=== PATIENT | female | born 1945 | race Caucasian/White ===

== ENCOUNTER 2017-06-25 05:51 | Day surgery (SDC) | payer OTHER, BC ==
[2017-06-25] MEDS ORDERED: GABAPENTIN 300 MG CAP PO ONE (06:14)
[2017-06-25] MEDS ORDERED: ACETAMINOPHEN 500 MG TAB PO ONE (06:14)
[2017-06-25] MEDS ORDERED: ceFAZolin 2 GM/SWFI 2 GM/20 ML SYR IVP ONE (06:14)
[2017-06-25] MEDS ORDERED: LR 1,000 ML IV ONE (06:15)
[2017-06-25] MEDS ORDERED: LIDOCAINE 1% 2 ML INJ ID PRN (06:15)
--- NOTE | 2017-06-25 06:35 | PDANEPAE ---
ANE History of Present Illness 72 yo F w L lumbar radiculopathy, here for decompression ANE Past Medical History - Cardiovascular History Hx Hypertension: Yes Hx Arrhythmias: No Hx Chest Pain: No Hx Coronary Artery / Peripheral Vascular Disease: No Hx CHF / Valvular Disease: No Hx Palpitations: No - Pulmonary History Hx COPD: No Hx Asthma/Reactive Airway Disease: No Hx Recent Upper Respiratory Infection: No Hx Oxygen in Use at Home: No Hx Sleep Apnea: No Sleep Apnea Screening Result - Last Documented: Negative - Neurologic History Hx Cerebrovascular Accident: No Hx Seizures: No Hx Dementia: No - Endocrine History Hx Diabetes: No Endocrine History Comment: hypothyroid - Renal History Hx Renal Disorders: No - Liver History Hx Hepatic Disorders: No - Neurological & Psychiatric Hx Hx Neurological and Psychiatric Disorders: Yes Neurological / Psychiatric History Comment: SI pain radiating down L hip pain, Stabbing pain L lateral thigh w/tingling down L leg - Cancer History Hx Cancer: Yes Cancer History Comment: melanoma Insitu R thigh removed - Congenital Disorder History Hx Congenital Disorders: No - GI History Hx Gastrointestinal Disorders: No Gastrointestinal History Comment: Hx GERD,ulcers-none past 2 yrs - Chronic Pain History Chronic Pain: Yes (L hip,L thigh) - Surgical History Prior Surgeries: T and A -child. appy -child. C section 1991. umbilical hernia repair 1992. lap isela 1997. R ACL replaced 2012 ANE Review of Systems Review of Systems: - Exercise capacity METS (RN): 4 METS ANE Patient History - Allergies Allergies/Adverse Reactions: Latex, Natural Rubber Allergy (Verified 06/25/17 06:21) meperidine [From Demerol] Allergy (Verified 06/25/17 06:21) Sulfa (Sulfonamide Antibiotics) Allergy (Verified 06/20/17 10:52) Anaphylaxis - Home Medications Home medications: home medication list seen and reviewed Home Medications: Citracal + D 06/20/17 [Last Taken 06/18/17] GINKGO BILOBA 06/20/17 [Last Taken 06/18/17] Krill Oil 06/20/17 [Last Taken 06/18/17] Ramipril 06/20/17 [Last Taken 06/18/17] Synthroid 06/20/17 [Last Taken 06/24/17] Triamterene 06/20/17 [Last Taken 06/18/17] Tylenol Arthritis 06/20/17 [Last Taken 06/24/17] - NPO status NPO Status: no food or drink >8 hours - Anes Hx Anes Hx: no prior problems - Smoking Hx Smoking Status: Never smoked - Alcohol Use Alcohol Use: Rarely - Family Anes Hx Family Anes Hx: none ANE Labs/Vital Signs - Vital Signs Vital Signs: reviewed preoperatively; see RN documention for details Height: 162.56 cm Weight: 72.121 kg ANE Physical Exam - Airway Neck exam: FROM Mallampati Score: Class 2 Mouth exam: normal dental/mouth exam - Pulmonary Pulmonary: no respiratory distress, clear to auscultation - Cardiovascular Cardiovascular: regular rate and rhythym, no murmur, rub, or gallop - ASA Status ASA Status: II ANE Anesthesia Plan Anesthesia Plan: general endotracheal anesthesia Total IV Anesthesia: Yes
[2017-06-25] MEDS ORDERED: MIDAZOLAM 2 MG/2 ML VIAL IVP ONE (06:36)
[2017-06-25] MEDS ORDERED: BUPIVACAINE 0.25% 30 ML SDV ONE (06:36)
[2017-06-25] MEDS ORDERED: CHLORHEXIDINE GLUC HIBICLENS 118 ML BTL TP ONE (06:36)
[2017-06-25] MEDS ORDERED: THROMBIN (BOVINE) 5,000 UNIT VIAL TP ONE (06:37)
[2017-06-25] MEDS ORDERED: DEPO METHYLPREDNISOLONE 40 MG/ML SDV ONE (06:37)
[2017-06-25] MEDS ORDERED: BACITRACIN 50,000 UNITS/10 ML SYR IRR ONE (06:37)
[2017-06-25] MEDS ORDERED: fentaNYL 100 MCG/2 ML INJ ONE ×4 (06:42→10:35)
[2017-06-25] MEDS ORDERED: PROPOFOL 200 MG/20 ML VIAL ONE (06:42)
[2017-06-25] MEDS ORDERED: REMIFENTANIL HCL 1 MG VIAL ONE (06:42)
[2017-06-25] MEDS ORDERED: PROPOFOL/EMULSION 500 MG/50 ML BOTTLE IV ONE (06:42)
[2017-06-25] MEDS ORDERED: SUCCINYLCHOLINE CHLORIDE 200 MG/10 ML SYR IVP ONE (06:49)
[2017-06-25] MEDS ORDERED: LIDOCAINE 2% 100 MG/5 ML SYR ONE (07:08)
[2017-06-25] MEDS ORDERED: ROCURONIUM 50 MG/5 ML VIAL ONE (07:08)
--- NOTE | 2017-06-25 07:18 | PDHPUP ---
History & Physical Update H&P update statement: This history and physical update is based on an assessment of the patient which was completed after admission or registration (within 24 hours), but prior to the surgery/procedure. H&P update: H&P reviewed & patient examined, no change in patient's condition since H&P completed
[2017-06-25] MEDS ORDERED: ONDANSETRON 4 MG/2 ML VIAL ONE (08:33)
[2017-06-25] MEDS ORDERED: DEXAMETHASONE 4 MG/ML VIAL ONE (08:33)
[2017-06-25] MEDS ORDERED: PHENYLEPHRINE HCL 100 MCG/ML SYR ONE (08:42)
[2017-06-25] MEDS ORDERED: OXYCODONE/APAP 5/325 TAB PO PRN (09:57)
[2017-06-25] MEDS ORDERED: NALOXONE HCL 0.4 MG/ML INJ IVP PRN (09:57)
[2017-06-25] MEDS ORDERED: HYDROmorphONE/DILAUDID 1 MG/ML INJ IVP PRN (09:57)
[2017-06-25] MEDS ORDERED: PROMETHAZINE HCL 25 MG/ML INJ IVP PRN (09:57)
[2017-06-25] MEDS ORDERED: HYDROCODONE/APAP 5/325 TAB PO PRN (09:57)
--- NOTE | 2017-06-25 09:57 | POSTANESTH ---
Post Anesthetic Evaluation Cardiovascular Status: Normal, Stable, Similar to Pre-Op Cond Respiratory Status: Normal, Stable, Similar to Pre-op Cond. Level of Consciousness/Mental Status: Can Participate in Eval, Alert and Oriented Pain Control: Adequate, Prn Tx Ordered Nausea/Vomiting Control: Adequate, Prn Tx Ordered Complications Possibly Related to Anesthesia: None Noted
--- NOTE | 2017-06-25 10:02 | POSTOPPROG ---
Post Op Note Date of Operation: 06/25/17 Surgeon: Cierra Arora Director Of Housing And [employer] Services: Kate Magana NP Anesthesia: GET(General Endotracheal) Pre-op Diagnosis: Lumbar stenosis Procedure: Left L3-4 LRD Inf/Abcess present in the surg proc area at time of surgery?: No Depth: Deep Incisional (Fascial) EBL: 50-100 Total fluids administered: see anesthesia Complications: none Date of Surgery: 06/25/17 Post Op Day: 0 Assessment/Plan: 72 yr old s/p left L3-4 LRD for left leg pain Plan: -Discharge home when criteria met -Please call neurosurgery with any questions/concerns Subjective: Patient waking up in PACU Objective: Waking up in PACU PERRL 5/5 BUE, BLE Sensation intact to light touch BLE Appropriate Neuro Check Frequency Ordered: Yes
[2017-06-25] MEDS: fentaNYL 100 MCG/2 ML INJ IVP PRN ×3 (10:25→11:06)
[2017-06-25] MEDS ORDERED: HYDROmorphONE/DILAUDID 1 MG/ML INJ ONE (10:34)
[2017-06-25] MEDS ORDERED: OXYCODONE/APAP 5/325 TAB ONE (10:57)
--- NOTE | 2017-06-25 11:01 | GOP ---
[f rep st] OPERATIVE REPORT DATE OF OPERATION: 06/25/2017 SURGEON: Brandon Arora MD NEUROSURGEON: Brandon Arora MD DOOR TO DOOR SELLING AGENT: Kate Magana NP PREOPERATIVE DIAGNOSIS: Herniated nucleus pulposus, L3-4, both in the spinal canal and left neural f oramen, left L4 radiculopathy. POSTOPERATIVE DIAGNOSIS: Herniated nucleus pulposus, L3-4, both in the spinal canal and left neural foramen, left L4 radiculopathy. PROCEDURE PERFORMED: Left L3-4 hemilaminotomy with a microdiskectomy (30021), microscope. FINDINGS: ESTIMATED BLOOD LOSS: 10 cc. 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 An MRI demonstrated a foraminal and intraspinal prolaps e of the L3-4 disc with compression, principally the L4 nerve root in the lateral recess. There was also some mass effect on the exiting L3 nerve root in the far lateral neural foramen. I explained th is to them. I explained the nature of spine surgery and our desire to do this through a single appro ach and I suggest an intraspinal approach, but I am also very familiar with the extraforaminal approa ch and, if this becomes necessary, we could offer this to her at a later date. I thought that the mo st likely result would be that she would respond nicely to a traditional left L3-4 microdiskectomy. They understood that I could not reliably know whether or not I delivered enough disc from the neural foramen to give her relief. The risk of spinal fluid leak, continued symptoms, back pain was discus sed. They understood these risks. They did want to proceed. DESCRIPTION OF PROCEDURE: The patient was taken to the operating room, placed in a supine position. General anesthesia was begun. She was flipped prone onto the Marshal frame. Care was taken to pad a ll points of contact. Her back was sterilely prepped and draped in the usual fashion. A localizing x-ray was taken. We made a midline 18 mm incision above the L3-4 interspace. The subcutaneous tissu e was dissected using Bovie cautery down through the fascia and a subperiosteal dissection was made d own the left L3-4 lamina. A self-retaining retractor was placed. A localizing x-ray was taken. We d rilled the left L3-4 hemilaminotomy. We opened ligamentum flavum and, under the scope, we decompress ed the lateral aspect of the thecal sac. We kept our exposure narrow preserving the IAP of L3 and no t disrupting the L3-4 facet joint. We decompressed to the mid L4 pedicle all the way up above the L3 -4 disk and then swept the thecal sac medially and underneath the L4 nerve in the lateral recess was a large prolapsed disc fragment. We took a black hook and simply opened the anulus of the disk and d elivered a nice fragment. We then opened the anulus somewhat more widely and squeezed additional mat erial in a subannular fashion out of the neural foramen. We did not radically remove the entire L3-4 disc, just the loose fragments that were present. We then irrigated the disk space with large amoun ts of antibiotic saline. The mass effect on the L4 nerve root has been completely alleviated. It wa s nice and free in the lateral recess. We irrigated with antibiotic saline solution, placed a little Depo-Medrol over the L4 nerve root and then closed the incision in multiple layers using Vicryl sutu res. Steri-Strips were applied to the skin. The patient was reversed from anesthesia, extubated, and transferred to the recovery room in stable condition. COMPLICATIONS: None. /[id number]/MODL
[2017-06-25 11:29] VITALS: TEMP 97
[2017-06-25 12:11] VITALS: BP 146/65; PULSE 75; RESP 14; O2SAT 93
== END 2017-06-25 12:05 | disposition home or self-care (01) ==
LOC: FSGY 05:51
PROVIDERS: ATTEND Neurological Surgery
DX: M51.16 Intervertebral disc disorders with radiculopathy, lumbar region (principal); I10 Essential (primary) hypertension; E03.9 Hypothyroidism, unspecified; Z85.820 Personal history of malignant melanoma of skin
CPT/HCPCS: J0171; J0330; J0690; J1030; J1100; J1170; J2001; J2370; J2405; J2704; J3010

== ENCOUNTER 2017-11-14 07:30 | Inpatient (IN) | payer OTHER, BC ==
[2017-11-14] MEDS ORDERED: GABAPENTIN 300 MG CAP PO ONE (11:01)
[2017-11-14] MEDS ORDERED: ceFAZolin 2 GM/DEXTROSE 100 ML IV ONE (11:01)
[2017-11-14] MEDS ORDERED: ACETAMINOPHEN 500 MG TAB PO ONE (11:01)
[2017-11-14] MEDS ORDERED: LR 1,000 ML IV ONE (11:01)
[2017-11-14] MEDS ORDERED: GABAPENTIN 300 MG CAP ONE (11:11)
[2017-11-14] MEDS ORDERED: CEFAZOLIN 2 GM/DEXTROSE/100 ML BAG IV ONE (11:11)
[2017-11-14] MEDS ORDERED: EPINEPHrine 1 MG/ML INJ ONE ×2 (11:12)
[2017-11-14] MEDS ORDERED: BUPIVACAINE 0.25% 30 ML SDV ONE (11:12)
[2017-11-14] MEDS ORDERED: ACETAMINOPHEN 500 MG TAB ONE (11:12)
[2017-11-14] MEDS ORDERED: THROMBIN (BOVINE) 5,000 UNIT VIAL TP ONE (11:14)
[2017-11-14] MEDS ORDERED: BACITRACIN 50,000 UNITS/10 ML SYR IRR ONE (11:14)
[2017-11-14] MEDS ORDERED: CHLORHEXIDINE GLUC HIBICLENS 118 ML BTL TP ONE (11:15)
[2017-11-14] MEDS ORDERED: THROMBIN (BOVINE) 20,000 UNIT VIAL TP ONE (11:18)
--- NOTE | 2017-11-14 12:00 | PDANEPAE ---
ANE Past Medical History - Cardiovascular History Hx Hypertension: Yes Hx Arrhythmias: No Hx Chest Pain: No Hx Coronary Artery / Peripheral Vascular Disease: No Hx CHF / Valvular Disease: No Hx Palpitations: No - Pulmonary History Hx COPD: No Hx Asthma/Reactive Airway Disease: No Hx Recent Upper Respiratory Infection: No Hx Oxygen in Use at Home: No Hx Sleep Apnea: No Sleep Apnea Screening Result - Last Documented: Negative - Neurologic History Hx Cerebrovascular Accident: No Hx Seizures: No Hx Dementia: No - Endocrine History Hx Diabetes: No Endocrine History Comment: hypothyroid - Renal History Hx Renal Disorders: No - Liver History Hx Hepatic Disorders: No - Neurological & Psychiatric Hx Hx Neurological and Psychiatric Disorders: Yes Neurological / Psychiatric History Comment: SI pain radiating down L hip pain, Stabbing pain L lateral thigh w/tingling down L leg - Cancer History Hx Cancer: Yes Cancer History Comment: melanoma Insitu R thigh removed - Congenital Disorder History Hx Congenital Disorders: No - GI History Hx Gastrointestinal Disorders: No Gastrointestinal History Comment: Hx GERD,ulcers-none past 2 yrs - Other Health History Other Health History: none - Chronic Pain History Chronic Pain: Yes (L hip,L thigh) - Surgical History Prior Surgeries: T and A -child. appy -child. C section 1991. umbilical hernia repair 1992. lap isela 1996. R ACL replaced 2012. lumbar decompression 07/05 ANE Review of Systems Review of Systems: - Exercise capacity METS (RN): 4 METS ANE Patient History - Allergies Allergies/Adverse Reactions: Latex, Natural Rubber Allergy (Verified 10/31/17 12:04) meperidine [From Demerol] Allergy (Verified 10/31/17 12:04) Sulfa (Sulfonamide Antibiotics) Allergy (Verified 10/31/17 12:04) Anaphylaxis - Home Medications Home Medications: Acetaminophen [Arthritis Pain Relief] 1,300 mg PO HS 10/25/17 [Last Taken ] Calcium Carb W/Vit D [Calcium Carb W/Vit D 500/200 (*)] 2 each PO DAILY [Last Taken 11/07/17] Herbals/Supplements -Info Only 1 ea PO DAILY 10/25/17 [Last Taken 11/07/17] Levothyroxine [Synthroid 100 mcg (*)] 100 mcg PO SUMOWEFRSA@2100 10/25/17 [Last Taken 11/13/17] Levothyroxine [Synthroid 88 mcg (*)] 88 mcg PO TUTH@2100 10/25/17 [Last Taken ] Multivitamins [Multivitamin (*)] 1 each PO DAILY 10/25/17 [Last Taken 11/07/17] [place] Tears Plus 1 drop EACHEYE BID 10/25/17 [Last Taken 11/14/17 08:00] Ramipril [Altace 5mg (*)] 5 mg PO DAILY 10/25/17 [Last Taken 11/14/17 06:30] Triamterene [Dyrenium 50MG (*)] 50 mg PO DAILY 10/25/17 [Last Taken 11/14/17 06: 30] - NPO status NPO Since - Liquids (Date): 11/13/17 NPO Since - Liquids (Time): 23:59 NPO Since - Solids (Date): 11/13/17 NPO Since - Solids (Time): 20:00 - Smoking Hx Smoking Status: Never smoked - Family Anes Hx Family Hx Anesthesia Complications: none ANE Labs/Vital Signs - Vital Signs Blood Pressure: 169/85 Heart Rate: 53 Respiratory Rate: 14 O2 Sat (%): 99 Height: 162.56 cm Weight: 71.214 kg ANE Physical Exam - Airway Neck exam: FROM Mallampati Score: Class 2 Mouth exam: normal dental/mouth exam - Pulmonary Pulmonary: no respiratory distress - Cardiovascular Cardiovascular: regular rate and rhythym - ASA Status ASA Status: II ANE Anesthesia Plan Anesthesia Plan: general endotracheal anesthesia
[2017-11-14] MEDS ORDERED: ROCURONIUM 50 MG/5 ML VIAL ONE (12:03)
[2017-11-14] MEDS ORDERED: MIDAZOLAM 2 MG/2 ML VIAL ONE (12:03)
[2017-11-14] MEDS ORDERED: PHENYLEPHRINE 10 MG/ML SDV ONE (12:03)
[2017-11-14] MEDS ORDERED: LIDOCAINE 2% 100 MG/5 ML SYR ONE (12:03)
[2017-11-14] MEDS ORDERED: PROPOFOL/EMULSION 500 MG/50 ML BOTTLE IV ONE ×4 (12:03→16:04)
[2017-11-14] MEDS ORDERED: METOCLOPRAMIDE 10 MG/2 ML VIAL ONE (12:03)
[2017-11-14] MEDS ORDERED: DEXAMETHASONE 4 MG/ML VIAL ONE ×2 (12:03)
[2017-11-14] MEDS ORDERED: POLYETHYLENE GLYCOL 3350 17 GM PKT PO PRN (17:22)
[2017-11-14] MEDS ORDERED: ONDANSETRON 4 MG/2 ML VIAL IVP PRN ×2 (17:22→17:24)
[2017-11-14] MEDS ORDERED: diphenhydrAMINE 25 MG CAP PO PRN (17:22)
[2017-11-14] MEDS ORDERED: LACTULOSE 20 GM/30 ML UDCUP PO PRN (17:22)
[2017-11-14] MEDS ORDERED: ONDANSETRON DISINTEGRATING 4 MG TAB PO PRN (17:22)
[2017-11-14] MEDS ORDERED: BISACODYL 10 MG SUPP PR PRN (17:22)
[2017-11-14] MEDS ORDERED: PROMETHAZINE HCL 25 MG/ML INJ IVP PRN (17:22)
[2017-11-14] MEDS ORDERED: MAGNESIUM HYDROXIDE 30 ML UDCUP PO PRN (17:22)
[2017-11-14] MEDS ORDERED: NALOXONE HCL 0.4 MG/ML INJ IVP PRN (17:24)
[2017-11-14] MEDS ORDERED: ALBUTEROL 3 ML DEYVIAL IH PRN (17:24)
--- NOTE | 2017-11-14 17:25 | POSTANESTH ---
Post Anesthetic Evaluation Cardiovascular Status: Similar to Pre-Op Cond Respiratory Status: Similar to Pre-op Cond. Level of Consciousness/Mental Status: Mildly Sleepy, Arousable Pain Control: Adequate, Prn Tx Ordered Nausea/Vomiting Control: Adequate, Prn Tx Ordered Complications Possibly Related to Anesthesia: None Noted
--- NOTE | 2017-11-14 17:29 | POSTOPPROG ---
Post Op Note Date of Operation: 11/14/17 Surgeon: Cierra Arora Cloth Grader: Lorrie Schneider PA-C Anesthesia: GET(General Endotracheal) Pre-op Diagnosis: Lumbar stenosis with radiculopathy Post-op Diagnosis: same Procedure: L3/4, L4/5 TLIF Findings: See dictated operative report Inf/Abcess present in the surg proc area at time of surgery?: No Depth: Organ Space EBL: 250 Drains: Kun Sterling (To full suction)
--- NOTE | 2017-11-14 17:33 | NEUSURGPN ---
Assessment/Plan: S: Patient in PACU. Stable and still waking up from surgery O: NAD, VSS No droop CN II-XII grossly intact PERRL, EOMI Following commands RAMOS X4 BLE 5/5= Sensation intact to lt touch Incision c/d/i LINDA X 1- to full suction A: 72 yo female sp L3/4, L4/5 TLIF P: -Admit to med/surg -Advance diet as tolerated -LINDA X 1 -Postop x-rays in am -DVT: TEDS, SCDs, Lovenox POD #3 -PT/OT -Brace to be delivered in am - Physician Discussed Patient with : Ulysses Patient Seen by : Ulysses Neurosurgery Physical Exam - Vitals, I&O, Labs I and O 11/13/17 11/14/17 11/15/17 05:59 05:59 05:59 Weight 71.214 kg Vital Signs Temp Pulse Resp BP Pulse Ox 36.5 C 53 L 14 169/85 H 99 11/14/17 11:07 11/14/17 11:59 11/14/17 11:59 11/14/17 11:59 11/14/17 11:59 ICD10 Worksheet Patient Problems: Problems Problem Status Onset Lumbar stenosis Acute - ICD10 Problem Qualifiers (1) Lumbar stenosis
[2017-11-14] MEDS ORDERED: fentaNYL 100 MCG/2 ML INJ ONE (17:43)
[2017-11-14] MEDS: fentaNYL 100 MCG/2 ML INJ IVP PRN ×2 (17:45→18:00)
--- NOTE | 2017-11-14 18:07 | GOP ---
[f rep st] OPERATIVE REPORT DATE OF OPERATION: 11/14/2017 SURGEON: Brandon Arora MD SEO CONSULTANT: Lorrie Schneider PA-C. PREOPERATIVE DIAGNOSIS: Large foraminal disk prolapse left L3-4, recurrent left L3-4 inferior disk e xtrusion adjacent to the L4 pedicle, severe spinal stenosis L4-5, severe left foraminal stenosis L3-4 and L4-5, mild degenerative scoliosis. POSTOPERATIVE DIAGNOSIS: Large foraminal disk prolapse left L3-4, recurrent left L3-4 inferior disk extrusion adjacent to the L4 pedicle, severe spinal stenosis L4-5, severe left foraminal stenosis L3- 4 and L4-5, mild degenerative scoliosis. PROCEDURE PERFORMED: Posterolateral and intervertebral arthrodesis with left-sided decompression at L3-4 (88612), bilateral decompression and posterolateral intervertebral arthrodesis at L4-5 (93361), posterior segmental instrumentation L3, L4, L5 (41187), same incision bone graft harvest, microscope, placement of biomechanical intervertebral device L3-4, L4-5 (64531 x2), same incision bone graft heladio vest. FINDINGS: ESTIMATED BLOOD LOSS: 300 cc. INDICATIONS: The patient underwent a transiently successful left L3-4 microdiskectomy due to a sandy inal extruded disk fragment a few months ago and had good initial relief, but the pain all returned a nd subsequent imaging demonstrated broad prolapse of the L3-4 anulus and disk into the L3-4 foramen w ith foraminal compression of the exiting L3 root. There was also recurrent extrusion down adjacent t o the L4 pedicle, compressing the L4 root. She had bilateral stenosis and foraminal stenosis at L4-5 and a degenerative scoliotic curve, and rather than reexploring, as much of her problem was both in the canal at 3-4, as well as in the foramen itself at the exiting 3 root, I suggested a 2 level fusio n, allowing us to deal with the degenerative scoliotic curve, radically remove the joint, decompress the exiting roots, and this would give us great freedom to thoroughly decompress the left-hand side. I was not optimistic that a reexploration of the same level would be useful. She understood this an d wanted to proceed. She knew there was risk of continued symptoms, nerve injury, spinal fluid leak. She knew there was a chance surgery may fail to alleviate her pain. She knew that she may develop adjacent segment disease and need for future surgery and she knew there was a chance she may not heal from the surgery. She wanted to proceed despite the risks. DESCRIPTION OF PROCEDURE: Patient was taken to the operating room, placed in supine position. Gener al anesthesia was begun. She was then flipped prone on the Kun table. Care was taken to pad all points of contact. Her back was sterilely prepped and draped in usual fashion. A localizing x-ray was taken. Made a midline incision from the spinous process of L2 down the spinous process of L5. I t was about 7.5 cm in length. The subcutaneous tissue was dissected using Bovie cautery down through the fascia and a subperiosteal dissection was made down the inferior lamina of L2. The lamina of L3 -4 and rostral lamina of L5 was exposed. We denuded the bilateral L3-4 and L4-5 facet joints and dec orticated the transverse processes. We attached the Stealth reference frame, performed an O-arm spin using frameless stealth stereotaxy. We placed pedicle screws bilaterally at L3, L4, and L5. All th e screws stimulated at acceptable levels. Her bone quality was acceptable and about as expected, giv en her age. We placed a 60 mm marcio on the right and a 65 mm marcio on left, distracted it on the left mo re so than the right, and reduced her scoliotic curve perfectly. Got some elevation of the disk spac e. The prior laminotomy on the left at L3-4 was visualized. We removed all soft tissue and bone at 3-4, 4-5, harvested the L4 and inferior L3 spinous process. We preserved the L5 spinous process. We drilled the bilateral laminectomy at L4-5 and harvested this bone for autologous grafting purposes. We drilled a left L3-4 facetectomy and harvested this bone for autologous grafting purposes. We com pletely decompressed bilaterally at L4-5 and removed the left L4-5 facet, decompressing the exiting L 4 nerve root at that level and the traversing L5 root. We decompressed the right traversing L5 nerve root at L4-5 and worked our way up to the scar at the L3-4 laminotomy site. We did remove the L3-4 facet and found ligamentum flavum rostral to our prior laminectomy site and localized the dura there, worked our way into the neural foramen. The exiting L3 nerve was identified and completely decompre ssed, and she had complete failure with the lateral anulus of the L3-4 disk and prolapse of the anulu s on the neural foramen. There was compression of the exiting L3 root. We then worked our way from this opening and dural visualization at L3-4 down and also worked our way up from the L4-5 decompress ion, removing the left hemirostral lamina of L4 and decompressing adjacent to the L4 pedicle. The L4 nerve root was totally decompressed adjacent to its pedicle. We did not go after the inferior disk extrusion at this time. We began by incising the L3-4 disk, sweeping the L4 nerve root medially, rem oving the disk and the cartilaginous endplates at L3-4, preparing for arthrodesis at that level. We decompressed the exiting L3 root. We then did likewise at the L4-5 level, sweeping the L4 nerve root medially and then removing the L4-5 disk and its cartilaginous endplates completely. We then packed bone autograft BMP and inserted into the L3-4 and L4-5 disk space expandable cages. They were 8 x 2 8 mm devices. They had been packed with BMP. We used a grand total of 1 mg of BMP in each disk spac e for total of 2 in the intervertebral spaces for this case. We used 2 mg posterolaterally in total for a total BMP usage of 4 mg. We then swept the L4 nerve root medially and there was scarred in mat erial adjacent to 4 root as it went over the L3-4 disk and was adjacent to the L4 pedicle, and we ope arnold this lateral scar and swept some remnants of acute free disk fragments out from underneath the 4 root and got a great decompression. This was the inferior extrusion that was seen on her MRI. The e ntire area was completely decompressed. We irrigated with antibiotic saline solution, placed a subfa scial drain, made sure that all our cap screws were torqued to company specification, placed bone aut ograft and BMP down posterolaterally to conclude our arthrodesis on each side. We placed a subfascia l drain, then closed the incision in multiple layers using Vicryl sutures. A running PDS was not use d in the skin. We simply closed the skin itself with interrupted Vicryl sutures and then Steri-Strip ped it. A dressing was applied. The patient was reversed from anesthesia, extubated, and transferre d to recovery room in stable condition. COMPLICATIONS: None. INSTRUMENTATION USED: Solera 5.5 mm system with 65 mm marcio on the left and a 60 mm titanium marcio on th e right. We used 8 x 28 mm Elevate cages. We used 4 mg of BMP and bone autograft. /[id number]/MODL
[2017-11-14] MEDS: oxyCODONE IR 5 MG TAB PO PRN (19:12)
[2017-11-14] MEDS ORDERED: LEVOTHYROXINE 100 MCG TAB PO SCH (21:00)
[2017-11-14] MEDS: SENNOSIDES/DOCUSATE SODIUM TAB PO SCH (21:20)
[2017-11-14] MEDS: ceFAZolin 2 GM/DEXTROSE 100 ML IV SCH (21:20)
[2017-11-14] MEDS: ACETAMINOPHEN 1300 MG PO SCH (21:21)
[2017-11-14] MEDS: ACETAMINOPHEN 500 MG TAB PO SCH (21:21)
[2017-11-15] MEDS: oxyCODONE IR 5 MG TAB PO PRN ×5 (01:49→22:01)
[2017-11-15] MEDS: METHOCARBAMOL 750 MG TAB PO PRN ×4 (01:53→20:09)
[2017-11-15] MEDS: ACETAMINOPHEN 500 MG TAB PO SCH ×3 (05:43→22:01)
[2017-11-15] MEDS: ceFAZolin 2 GM/DEXTROSE 100 ML IV SCH (05:44)
--- NOTE | 2017-11-15 08:11 | NEUSURGPN ---
Assessment/Plan: S: Doing well, has expected back pain but was up to the bathroom already today. Leg pain is improved. Some nausea with pain medicines but better after food. O: NAD, VSS No droop CN II-XII grossly intact PERRL, EOMI Following commands RAMOS X4 BLE 5/5= Sensation intact to lt touch Incision c/d/i LINDA X 1- to full suction A: 72 yo female sp L3/4, L4/5 TLIF P: -Overall doing well -Pain well managed- some nausea with pain medicines, give food and zofran prior to pain medicine -LINDA X 1- remove today -Postop x-rays today -Brace when up and OOB -DVT: TEDS, SCDs, Lovenox POD #3 -PT/OT -Discussed with Dr. Arora -Dispo- Work with PT/OT today, [facility] Catheter Insertion Date: 11/14/17 - Physician Discussed Patient with : Ulysses Neurosurgery Physical Exam - Vitals, I&O, Labs I and O 11/14/17 11/15/17 11/16/17 05:59 05:59 05:59 Intake Total 2860 Output Total 1360 880 Balance 1500 -880 Weight 71.214 kg Intake: Oral (ml) 1050 IV Intake (ml) 1600 IV Infused (ml) 210 ceFAZolin 2 GM/DEXTROSE 210 100 ml @ 200 mls/hr IV Q8HRS [facility] Rx#:[id number] Output: Urine (ml) 820 800 Catheter 820 800 Estimated Blood Loss (ml) 300 LINDA Drain Output (ml) 240 80 #1 Back 240 80 Vital Signs Temp Pulse Resp BP Pulse Ox 36.5 C 57 L 16 122/60 H 100 11/15/17 04:00 11/15/17 04:00 11/15/17 04:00 11/15/17 04:00 11/15/17 04:00 ICD10 Worksheet Patient Problems: Problems Problem Status Onset Lumbar stenosis Acute - ICD10 Problem Qualifiers (1) Lumbar stenosis
[2017-11-15] MEDS: SENNOSIDES/DOCUSATE SODIUM TAB PO SCH ×2 (08:22→20:09)
--- NOTE | 2017-11-15 13:22 | PDMN ---
Medical Necessity Medical necessity: IP surgery per [facility] cpt 94832, 29975 L3/4, 4/5 TLIF
[2017-11-15] MEDS: RAMIPRIL 5 MG CAP PO SCH (14:05)
[2017-11-15] MEDS: TRIAMTERENE 50 MG CAP PO SCH (14:06)
--- NOTE | 2017-11-15 14:07 | ASMTCMCOM ---
CM Note CM Note Notes: Pt s/p L3/4, L4/5 TLIF. OT rec home, PT rec 24/hr supervision. Anticipate pt will d/c when medically stable with support/supervision. CM available for changes/needs. Date Signed: 11/15/2017 02:06 PM Electronically Signed By:DOMITILA Beal
[2017-11-15] MEDS ORDERED: LEVOTHYROXINE 88 MCG TAB PO SCH (21:00)
[2017-11-15] MEDS: ACETAMINOPHEN 1300 MG PO SCH (22:06)
[2017-11-16] MEDS: oxyCODONE IR 5 MG TAB PO PRN ×2 (06:01→11:00)
[2017-11-16] MEDS: ACETAMINOPHEN 500 MG TAB PO SCH ×2 (06:01→13:58)
[2017-11-16 07:34] VITALS: BP 121/53
--- NOTE | 2017-11-16 08:08 | NEUSURGPN ---
Date of Surgery: 11/14/17 Post Op Day: 2 Assessment/Plan: 72 yo female sp L3/4, L4/5 TLIF POD#2 P: -Overall doing well -Pain controll -LINDA removed on 11/15 -Postop x-rays with hardware in good placement -Brace when up and OOB -DVT: TEDS, SCDs, Lovenox POD #3 -PT/OT -Discussed with Dr. Arora -Dispo- Likely home this afternoon Subjective: Having localized back pain. No lower extremity pain, numbness, tingling. Objective: Awake. Alert. PERRL. EOMI Facial expression symmetrical muscle strength full at 5/5 sensation intact Catheter Insertion Date: 11/14/17 - Physician Discussed Patient with : Ulysses Neurosurgery Physical Exam - Vitals, I&O, Labs I and O 11/15/17 11/16/17 11/17/17 05:59 05:59 05:59 Intake Total 2860 500 Output Total 1360 1030 Balance 1500 -530 Weight 71.214 kg Intake: Oral (ml) 1050 500 IV Intake (ml) 1600 IV Infused (ml) 210 ceFAZolin 2 GM/DEXTROSE 210 100 ml @ 200 mls/hr IV Q8HRS [facility] Rx#:[id number] Output: Urine (ml) 820 800 Catheter 820 800 Estimated Blood Loss (ml) 300 LINDA Drain Output (ml) 240 230 #1 Back 240 230 Other: Intake Quantity Yes Sufficient Number of Voids Toilet 1 Number of Stools Toilet 0 Vital Signs Temp Pulse Resp BP Pulse Ox 37.1 C 75 16 121/53 H 93 11/16/17 07:33 11/16/17 07:33 11/16/17 07:33 11/16/17 07:33 11/16/17 07:33 ICD10 Worksheet Patient Problems: Problems Problem Status Onset Lumbar stenosis Acute
[2017-11-16] MEDS: SENNOSIDES/DOCUSATE SODIUM TAB PO SCH (08:20)
[2017-11-16] MEDS: TRIAMTERENE 50 MG CAP PO SCH (08:20)
[2017-11-16] MEDS: METHOCARBAMOL 750 MG TAB PO PRN ×2 (08:29→13:49)
[2017-11-16] MEDS: RAMIPRIL 5 MG CAP PO SCH (10:01)
--- NOTE | 2017-11-16 15:07 | ASDISCHSUM ---
Discharge Information Plan Status:Home with No Needs Medically Cleared to Leave: Discharge Date:11/16/2017 02:36 PM CM D/C Disposition:Home, Routine, Self-Care ADT D/C Disposition:Home, Routine, Self-Care Projected Discharge Date:11/16/2017 02:36 PM Transportation at D/C: Discharge Delay Reason: Follow-Up Date:11/16/2017 02:36 PM Discharge Slot: Final Diagnosis: Placement Information Patient Contact Information Contact Name:SALAS Relationship: Address:[address] City:[facility] Phone: [facility] Code:[place] [address] Email: Financial Information Financial Class:Medicare Primary Plan Desc:MEDICARE INPATIENT Primary Plan Number:[id number] Secondary Plan Desc:[facility] Secondary Plan Number:[id number] Assessment Information [facility] CM Progress Note CM Note CM Note Notes: Pt s/p L3/4, L4/5 TLIF. OT rec home, PT rec 24/hr supervision. Anticipate pt will d/c when medically stable with support/supervision. CM available for changes/needs. Date Signed: 11/15/2017 02:06 PM Electronically Signed By:DOMITILA Beal Intervention Information Intervention Type:*IM-Signed Date of Service:11/16/2017 12:16 PM Patient Type:Inpatient Staff Member:Viviane Pickering Hours: Discipline: Severity: Comment:
[2017-11-17] MEDS ORDERED: ENOXAPARIN 40 MG/0.4 ML SYR SC SCH (09:00)
== END 2017-11-16 14:36 | disposition home or self-care (01) | DRG 455 ==
LOC: F3N 10:53
PROVIDERS: ADMIT Neurological Surgery; ATTEND Neurological Surgery
PROC: 00NY0ZZ Release Lumbar Spinal Cord, Open Approach (ICD-10-PCS; principal; 2017-11-14 12:30)
PROC: 0SG1071 Fusion of 2 or more Lumbar Vertebral Joints with Autologous Tissue Substitute, Posterior Approach, Posterior Column, Open Approach (ICD-10-PCS; principal; 2017-11-14 12:30)
PROC: 01NB0ZZ Release Lumbar Nerve, Open Approach (ICD-10-PCS; principal; 2017-11-14 12:30)
PROC: 0SG10AJ Fusion of 2 or more Lumbar Vertebral Joints with Interbody Fusion Device, Posterior Approach, Anterior Column, Open Approach (ICD-10-PCS; principal; 2017-11-14 12:30)
DX: M48.061 Spinal stenosis, lumbar region without neurogenic claudication (principal); M41.86 Other forms of scoliosis, lumbar region; I10 Essential (primary) hypertension; E03.9 Hypothyroidism, unspecified
CPT/HCPCS: 97116-GP; 97161-GP; 97165-GO; 97535-GO; C1713; G8978-GP-CI; G8978-GP-CJ; G8979-GP-CI; G8980-GP-CI; G8987-GO-CI; G8988-GO-CI; J0171; J0690; J1100; J2001; J2250; J2270; J2370; J2704; J2765; J3010